=== PATIENT | male | born 1955 | race Caucasian/White ===

== ENCOUNTER 2018-09-16 15:11 | Outpatient (CLI) | payer MEDICAID ==
[~2018-09-16 15:11] MED LIST: NAPR-56 PO
[2018-09-16 15:26] VITALS: BP 119/77
== END 2018-09-16 16:45 | disposition home or self-care (01) ==
LOC: ORTHO 15:11
PROVIDERS: ATTEND Orthopaedic Surgery
DX: S52.591D Other fractures of lower end of right radius, subsequent encounter for closed fracture with routine healing (principal); S46.111D Strain of muscle, fascia and tendon of long head of biceps, right arm, subsequent encounter; M19.031 Primary osteoarthritis, right wrist; J44.9 Chronic obstructive pulmonary disease, unspecified; X58.XXXD Exposure to other specified factors, subsequent encounter
CPT/HCPCS: 73110; G0463

== ENCOUNTER 2019-11-02 06:26 | Inpatient (IN) | payer MEDICAID ==
[2019-10-27 11:11] LABS: BASOPHILS % (AUTO) 0.9 % (0-1); EOSINOPHILS # (AUTO) 0.2 X10'3 (0-0.9); EOSINOPHILS % (AUTO) 3.7 % (0-6); LYMPHOCYTES # (AUTO) 1.2 X10'3 (1.1-4.8); LYMPHOCYTES % (AUTO) 25.7 % (21-51); MEAN CORPUSCULAR HEMOGLOBIN 32.5 PG (27.0-31.0); MEAN CORPUSCULAR HGB CONC 33.9 g/dL (33.0-36.5); MEAN CORPUSCULAR VOLUME 95.9 FL (78-98); MEAN PLATELET VOLUME 7.2 FL (7.4-10.4); MONOCYTES # (AUTO) 0.5 X10'3 (0-0.9); MONOCYTES % (AUTO) 9.3 % (2-12); NEUTROPHILS # (AUTO) 2.9 X10'3 (1.8-7.7); NEUTROPHILS % (AUTO) 60.4 % (42-75); PRE OP HEMATOCRIT 42.7 % (42.0-52.0); PRE OP HEMOGLOBIN 14.5 g/dL (14.0-17.9); PRE OP PLATELET COUNT 323 X10'3 (140-440); RED BLOOD COUNT 4.45 X10'6 (4.70-6.10); RED CELL DISTRIBUTION WIDTH 14.2 % (11.5-14.5)
[2019-10-27 11:19] LABS: PRE OP PROTIME 10.3 SECONDS (9.0-12.0)
[2019-10-27 11:22] LABS: ALBUMIN/GLOBULIN RATIO 1.3 (1.1-1.5); ALKALINE PHOSPHATASE 82 IU/L (46-116); BLOOD UREA NITROGEN 14 MG/DL (7-18); CALCIUM 8.9 MG/DL (8.5-10.1); CHLORIDE 104 MMOL/L (99-107); CREATININE 1.08 MG/DL (0.60-1.10); PRE OP ALT 21 U/L (30-65); PRE OP ANION GAP 5 (8-16); PRE OP AST 22 U/L (10-37); PRE OP BILIRUB, TOTAL 0.5 MG/DL (0.0-1.0); PRE OP GLUCOSE 93 MG/DL (70-104); PRE OP SODIUM 140 MMOL/L (135-145); TOTAL CARBON DIOXIDE 31.2 MMOL/L (24-32); TOTAL PROTEIN 7.2 G/DL (6.4-8.2); eGFR 69 ML/MIN
[~2019-11-02] VITALS: Ht 182.9 cm; Wt 68.0 kg
[2019-11-02] VITALS (17 sets, daily range): BP systolic 114–138; BP diastolic 53–75
[~2019-11-02 06:26] MED LIST changes: +ALBU8.5H8 INH; +BECL7.3A INH; +DULO-31 PO; +HCTZ25T PO; +IBUP-24 PO; +MELO-102 PO; +MV-M1CAP15 PO; -NAPR-56 PO; +albuterol 2.5 MG/3 ML nebule NEB ONE; +famotidine 20mg tablet PO ONE; +ringers solution, lacted 1,000 ML IV SCH
[2019-11-02] MEDS ORDERED: HYDROmorphone inj. 0.5 MG/0.5 ML DISP.SYRIN IV PRN ×3 (06:30→12:10)
[2019-11-02] MEDS ORDERED: cefazolin/dext.iso 2gm/50ml 50 ML IV ONE (06:30)
[2019-11-02] MEDS ORDERED: ondansetron/PF 4mg/2ml inj IV PRN ×2 (06:30→12:10)
[2019-11-02] MEDS ORDERED: acetaminophen 325mg tablet PO PRN (06:30)
[2019-11-02] MEDS ORDERED: HYDROmorphone 1 mg/ml syringe IV PRN (06:30)
[2019-11-02] MEDS ORDERED: bisacodyl 10mg suppository rectal RC PRN (06:30)
[2019-11-02] MEDS ORDERED: magnesium hydroxide 30ml (MOM) UD suspension PO PRN (06:30)
[2019-11-02] MEDS ORDERED: diphenhydrAMINE 25mg capsule PO PRN ×2 (06:30)
[2019-11-02] MEDS ORDERED: oxyCODONE/APAP 10/325mg tablet PO PRN (06:30)
[2019-11-02] MEDS ORDERED: vancomycin/NS 1 GM ADD-VANTAGE 250 ML IV ONE (06:30)
[2019-11-02] MEDS ORDERED: vancomycin 1,000mg inj ONE (11:11)
[2019-11-02] MEDS ORDERED: midazolam 2 mg/2 ml injection ONE (11:23)
[2019-11-02] MEDS ORDERED: propofol inj 20 ML IV ONE (11:42)
[2019-11-02] MEDS ORDERED: LIDOcaine 2% (20mg/ml) 5ml vial ONE (11:42)
[2019-11-02] MEDS ORDERED: fentaNYL/PF 50MCG/1 ML 2ML syringe ONE (11:56)
[2019-11-02] MEDS ORDERED: tranexamic acid inj. 700 MG in normal saline 100ml IV soln 100 ML IV ONE (12:00)
[2019-11-02] MEDS ORDERED: ondansetron/PF 4mg/2ml inj ONE (12:06)
[2019-11-02] MEDS ORDERED: dexamethasone sod phosphate 4mg/ml inj. ONE (12:06)
[2019-11-02] MEDS ORDERED: ringers solution, lacted 1,000 ML IV SCH (12:08)
[2019-11-02] MEDS ORDERED: morphine 4 MG/ML inj SYRINge IV PRN (12:10)
[2019-11-02] MEDS ORDERED: acetaminophen 1,000mg/100ml IV 100 ML IV PRN (12:10)
[2019-11-02] MEDS ORDERED: hydrALAZINE 20mg/ml inj. IV PRN (12:10)
[2019-11-02] MEDS ORDERED: morphine 2 MG/ML inj. syringe IV PRN (12:10)
[2019-11-02] MEDS ORDERED: ROPIVAcaine 0.2% (10 MG/5 ML) BOLUS INJECTION ADDCANAL PRN (12:10)
[2019-11-02] MEDS ORDERED: meperidine/PF 25mg/ml syringe IV PRN (12:10)
[2019-11-02] MEDS ORDERED: proCHLORperazine 10 MG/2 ml inj IV PRN (12:10)
[2019-11-02] MEDS ORDERED: labetalol 20mg/4ml (5mg/ml) syringe IV PRN (12:10)
[2019-11-02] MEDS ORDERED: ePHEDrine 50MG/ML INJ. ONE (12:50)
[2019-11-02] MEDS ORDERED: ROPIVAcaine 0.5% (5mg/ml) 30ml vial ONE (12:50)
--- NOTE | 2019-11-02 13:36 | NUR ---
RECEIVED FROM OR VIA BED WITH OHTF ACCOMPANIED BY ANESTHESIOLOGIST DR VANCE, REPORT GIVEN. PT DROWSY BUT AWAKENS EASILY AND DENIES PAIN AT THIS TIME. SPINAL SENSATION AT FEET WITH ON Q CATHETER IN PLACE. LEFT KNEE MINISTERIO DRESSING CDI WITH KNEE WRAP AND POWDER PACK IN PLACE. PPULSES PALPABLE, BRISK CAP REFILL, VSS, MCKOY,RESTING COMFORTABLY.
[2019-11-02] MEDS: ROPIVAcaine 0.2%/PF PUMP/bolus 550 ML ADDCANAL SCH (14:20)
[2019-11-02] MEDS: potassium cl 20mEq in 1/2 NS 1,000 ML IV SCH ×2 (14:26→19:18)
--- NOTE | 2019-11-02 14:46 | NUR ---
TRANSPORTED VIA BED WITH OHTF ACCOMPANIED BY MYSELF REPORT GIVEN. PT AWAKE AND ALERT AND STATES PAIN AT A LEVEL 4 AT THIS TIME. SPINAL SENSATION AT FEET WITH ON Q CATHETER IN PLACE. LEFT KNEE MINISTERIO DRESSING CDI WITH KNEE WRAP AND POWDER PACK IN PLACE. PPULSES PALPABLE, BRISK CAP REFILL, VSS, MCKOY,RESTING COMFORTABLY., LEFT IN CARE OF ALEXIA DANIELS.
[2019-11-02] MEDS ORDERED: albuterol 2.5 MG/3 ML nebule NEB PRN (15:25)
--- NOTE | 2019-11-02 18:19 | NUR ---
Problems reprioritized. Patient report given, questions answered & plan of care reviewed with Luciano.
--- NOTE | 2019-11-02 18:30 | NUR ---
Patient in room [facility]TH[facility] 4013. I have received report from ALEXIA DANIELS and had the opportunity to ask questions and assume patient care.
[2019-11-02] MEDS: duloxetine 30mg CAPSULE.DR PO SCH (19:18)
[2019-11-02] MEDS: ceFAZolin 1GM/D5W- ADD-VANTAGE 50 ML IV SCH (19:48)
[2019-11-02] MEDS ORDERED: vancomycin/NS 1 GM ADD-VANTAGE 250 ML IV SCH (20:00)
[2019-11-02] MEDS ORDERED: budesonide 0.5mg/2ml UD nebule IH SCH (20:00)
--- NOTE | 2019-11-02 20:45 | NUR ---
Patient report given, questions answered & plan of care reviewed with MAR DANIELS.
[2019-11-02] MEDS ORDERED: sennosides 8.6mg tablet PO SCH (21:00)
[2019-11-02] MEDS: ascorbic acid 500mg tablet PO SCH (22:07)
[2019-11-02] MEDS: gabapentin 300mg capsule PO SCH (22:07)
[2019-11-02] MEDS: oxyCODONE/APAP 10/325mg tablet PO PRN (22:08)
[2019-11-03] MEDS: ceFAZolin 1GM/D5W- ADD-VANTAGE 50 ML IV SCH (00:02)
[2019-11-03] MEDS: oxyCODONE/APAP 10/325mg tablet PO PRN ×3 (03:33→13:59)
[2019-11-03] MEDS: potassium cl 20mEq in 1/2 NS 1,000 ML IV SCH ×2 (03:33→11:13)
[2019-11-03 06:00] VITALS: BP 143/74
--- NOTE | 2019-11-03 06:15 | NUR ---
REPORT GIVEN TO JEREMIAH HALE.
--- NOTE | 2019-11-03 06:24 | NUR ---
Patient in room ORTH[facility] 4013. I have received report from Silvana and had the opportunity to ask questions and assume patient care.
[2019-11-03 07:11] LABS: BASOPHILS % (AUTO) 0.3 % (0-1); EOSINOPHILS % (AUTO) 0 % (0-6); HEMATOCRIT 35.4 % (42.0-52.0); HEMOGLOBIN 11.9 g/dl (14.0-17.9); LYMPHOCYTES # (AUTO) 2.1 X10'3 (1.1-4.8); LYMPHOCYTES % (AUTO) 18.6 % (21-51); MEAN CORPUSCULAR HEMOGLOBIN 32.4 PG (27.0-31.0); MEAN CORPUSCULAR HGB CONC 33.7 g/dL (33.0-36.5); MEAN CORPUSCULAR VOLUME 96.3 FL (78-98); MEAN PLATELET VOLUME 7.3 FL (7.4-10.4); MONOCYTES # (AUTO) 0.9 X10'3 (0-0.9); MONOCYTES % (AUTO) 7.6 % (2-12); NEUTROPHILS # (AUTO) 8.2 X10'3 (1.8-7.7); NEUTROPHILS % (AUTO) 73.5 % (42-75); PLATELET COUNT 276 X10'3 (140-440); RED BLOOD COUNT 3.68 X10'6 (4.70-6.10); RED CELL DISTRIBUTION WIDTH 13.8 % (11.5-14.5); WHITE BLOOD COUNT 11.2 X10'3 (4.5-11.0)
[2019-11-03 07:18] LABS: ANION GAP 4 (8-16); CHLORIDE 105 MMOL/L (99-107); SODIUM 137 MMOL/L (135-145); TOTAL CARBON DIOXIDE 27.6 MMOL/L (24-32)
[2019-11-03] MEDS ORDERED: HYDROchlorothiazide 25mg tablet PO SCH (08:00)
[2019-11-03] MEDS ORDERED: multivitamins, therapeutics tablet PO SCH (08:00)
[2019-11-03] MEDS ORDERED: aspirin 325mg tablet PO SCH (08:30)
[2019-11-03] MEDS: ascorbic acid 500mg tablet PO SCH (09:32)
[2019-11-03] MEDS: duloxetine 30mg CAPSULE.DR PO SCH (09:32)
[2019-11-03] MEDS: gabapentin 300mg capsule PO SCH ×2 (09:33→13:59)
[2019-11-03] MEDS ORDERED: ROPIVAcaine inj 250 MG, ketorolac tromethamine inj. 15 MG, CloNIDine/PF inj 80 MCG, epi... IU ONE ×5 (11:45)
[2019-11-03] MEDS ORDERED: ASPI-1 PO (12:03)
[2019-11-03] MEDS ORDERED: ONQPUMP ADDCANAL (12:03)
[2019-11-03] MEDS: ROPIVAcaine 0.2%/PF PUMP/bolus 550 ML ADDCANAL SCH (13:59)
--- NOTE | 2019-11-03 14:34 | NUR ---
Joint surgery consult: Pt s/p L TKA noted to be NPO this AM as well as AOx3/confused per EMR. Not appropriate for high protein ed at this time. Will continue to monitor for additional protein needs post-op. Addendum: 11/03/19 at [address] Amended: Links added.
[2019-11-03] MEDS ORDERED: celeCOXIB 100mg capsule PO SCH (20:00)
== END 2019-11-03 15:30 | disposition home or self-care (01) | DRG 302 ==
LOC: PAS IN 06:26 → UNDOADMIN 09:45 → EDSTATUS 13:30 → PAS IN 14:45 → ORTHO 4S 14:45
PROVIDERS: ADMIT Orthopaedic Surgery; ATTEND Orthopaedic Surgery
PROC: 0SRD0J9 Replacement of Left Knee Joint with Synthetic Substitute, Cemented, Open Approach (ICD-10-PCS; principal; 2019-11-02 11:17)
DX: M17.12 Unilateral primary osteoarthritis, left knee (principal); D62 Acute posthemorrhagic anemia; J44.9 Chronic obstructive pulmonary disease, unspecified; Z79.899 Other long term (current) drug therapy
CPT/HCPCS: 36415; 73560; 80051; 80053; 82948; 85025; 85610; 85730; 86885; 86900; 86901; 87081; 87635; 93005; 94640; 94760; 97110; 97116; 97161; A4215; A6449; A6454; A7000; C1713; C1776; G0378; J0690; J1100; J1170; J2001; J2250; J2405; J2704; J2795; J3010; J3370; J3480; J7120; J7626

== ENCOUNTER 2023-12-11 13:57 | Emergency (ER) | payer MEDICAID, MEDICARE ==
[~2023-12-11] VITALS: Ht 170.2 cm; Wt 74.0 kg
[~2023-12-11 13:57] MED LIST changes: +ALBU8.5H17 INH; -ALBU8.5H8 INH; +ASPI-1 PO; -HCTZ25T PO; +HYDR25TA5 PO; +ONQPUMP ADDCANAL; -albuterol 2.5 MG/3 ML nebule NEB ONE; -famotidine 20mg tablet PO ONE; -ringers solution, lacted 1,000 ML IV SCH
[2023-12-11 13:59] VITALS: TEMP 98.8
[2023-12-11 15:48] LABS: BASOPHILS % (AUTO) 0.4 % (0-1); EOSINOPHILS # (AUTO) 0.1 X10'3 (0-0.9); EOSINOPHILS % (AUTO) 1.3 % (0-6); HEMATOCRIT 45.6 % (42.0-52.0); HEMOGLOBIN 15.6 g/dl (14.0-17.9); LYMPHOCYTES # (AUTO) 1.2 X10'3 (1.1-4.8); LYMPHOCYTES % (AUTO) 19.3 % (21-51); MEAN CORPUSCULAR HEMOGLOBIN 33.4 PG (27.0-31.0); MEAN CORPUSCULAR HGB CONC 34.1 g/dL (33.0-36.5); MEAN PLATELET VOLUME 7.4 FL (7.4-10.4); MONOCYTES # (AUTO) 0.4 X10'3 (0-0.9); NEUTROPHILS # (AUTO) 4.5 X10'3 (1.8-7.7); PLATELET COUNT 322 X10'3 (140-440); RED BLOOD COUNT 4.66 X10'6 (4.70-6.10); RED CELL DISTRIBUTION WIDTH 13.1 % (11.5-14.5); WHITE BLOOD COUNT 6.2 X10'3 (4.5-11.0)
[2023-12-11 16:01] LABS: APTT 29 SECONDS (22-32); PROTHROMBIN TIME 10.8 SECONDS (9.0-12.0)
[2023-12-11] MEDS: diltiazem 5mg/ml 5ml inj. IV ONE (16:10)
[2023-12-11] MEDS: magnesium sulf-water 2g/50mL 50 ML IV ONE (16:11)
[2023-12-11 16:13] LABS: ALBUMIN 3.9 G/DL (3.4-5.0); ANION GAP 8 (8-16); BLOOD UREA NITROGEN 15 MG/DL (7-18); CALCIUM 9.2 MG/DL (8.5-10.1); CHLORIDE 103 MMOL/L (99-107); CREATININE 0.94 MG/DL (0.60-1.10); GLUCOSE 95 MG/DL (70-104); MAGNESIUM 1.8 MG/DL (1.5-2.4); POTASSIUM 3.9 MMOL/L (3.5-5.1); PRO BRAIN NATRIURETIC PEPTIDE 370 PG/ML (0-125); SODIUM 137 MMOL/L (135-145); eCRCL 69 ML/MIN; eGFR 80 ML/MIN
[2023-12-11 18:01] VITALS: BP 121/78; PULSE 57; RESP 15; O2SAT 98
== END 2023-12-11 18:35 | disposition home or self-care (01) ==
LOC: ER 13:57
DX: I48.20 Chronic atrial fibrillation, unspecified (principal); F12.90 Cannabis use, unspecified, uncomplicated; Z79.82 Long term (current) use of aspirin; Z79.899 Other long term (current) drug therapy
CPT/HCPCS: 36415; 71045; 80048; 83735; 83880; 84484; 85025; 85610; 85730; 93005; 96365; 96366; 96375; 99285; J3490; J7120; Z7610